=== PATIENT | female | born 1965 | race Caucasian/White ===

== ENCOUNTER 2019-08-20 10:50 | Outpatient (REF) | payer OTHER, SELFPAY ==
[2019-08-20 19:52] LABS: Calculated LDL 147 mg/dL; Cholesterol 213 mg/dL (50-200); HDL Cholesterol 54 mg/dL (40-60); Triglyceride 64 mg/dL (30-150)
== END 2019-08-20 11:10 ==
LOC: NCHCN 10:50
PROVIDERS: PCP Nurse Practitioner Family; Visit Provider Physician Assistant
DX: Z13.220 Encounter for screening for lipoid disorders (principal)
CPT/HCPCS: 80061

== ENCOUNTER 2022-06-09 21:26 | Outpatient (REF) | payer OTHER, SELFPAY ==
[2022-06-09 22:30] LABS: ALT 32 U/L (14-59); AST 24 U/L (15-37); Alkaline Phosphatase 69 U/L (46-116); Anion Gap 11.2 mmol/L (3-11); BUN 13 mg/dL (7-18); Bilirubin, Total 0.4 mg/dL (0.2-1.0); CO2 28.8 mmol/L (21.0-32.0); CREATININE 0.7 mg/dL (0.55-1.02); Calculated LDL 182 mg/dL (<100); Chloride 99 mmol/L (98-107); Cholesterol 259 mg/dL (<200); Glucose 102 mg/dL (74-106); HDL Cholesterol 59 mg/dL (40-60); Potassium 3.8 mmol/L (3.5-5.1); Sodium 139 mmol/L (136-145); TSH 0.76 uIU/mL (0.36-3.74); Total Protein 7.5 g/dL (6.4-8.2); Triglyceride 90 mg/dL (<150)
[2022-06-10 17:57] LABS: Rheumatoid Factor <8.6 IU/mL (<12.0)
[2022-06-13 12:53] LABS: ANA Interpretation Negative (Negative)
== END 2022-06-09 21:27 | disposition home or self-care (01) ==
LOC: NCHCN 21:26
PROVIDERS: PCP Nurse Practitioner Family; Visit Provider Nurse Practitioner Family
DX: E78.5 Hyperlipidemia, unspecified (principal); R68.89 Other general symptoms and signs; M25.50 Pain in unspecified joint
CPT/HCPCS: 80053; 80061; 84443; 86038; 86431

== ENCOUNTER 2022-08-01 13:11 | Outpatient (REF) | payer OTHER, SELFPAY ==
--- NOTE | 2022-08-01 11:00 | PAPFT_PTH ---
PATIENT: Carolyn Rollins LOC: [facility] U#:[id number] AGE/SX: 56/F ROOM: RE08/01/[address]: Shital Ernst DO : 1965 BED: DIS: 08/01/2022 SPEC #: [id number] RECD: 08/01/22 13:14 STATUS: CHRISTY REQ #: [id number] DEYA: 08/01/22 11:[address]: Shital Ernst DEPT: [facility] Cytology RECD BY: Rosalinda Sow ENTERED: 08/01/22 13:14 SP TYPE: PAPFT OTHR DR: Sera Azevedo Tissues: 1 - CX/ENDOCX FOR PAP SMEARS Procedures: PAP THIN PREP/UVM Screening HPV DNA PROBE Comments: [id number]
== END 2022-08-01 13:12 | disposition home or self-care (01) ==
LOC: LBN 13:11
PROVIDERS: PCP Nurse Practitioner Family; Visit Provider Obstetrics & Gynecology
DX: Z12.4 Encounter for screening for malignant neoplasm of cervix (principal); Z11.51 Encounter for screening for human papillomavirus (HPV)
CPT/HCPCS: 88142; 87624

== ENCOUNTER 2022-10-20 01:27 | Outpatient (CLI) | payer OTHER, SELFPAY ==
--- NOTE | 2022-10-20 12:00 | DI.MAMMO_ITS ---
Exam(s) MAMMO SCREENING EXAM: MAMMO SCREENING CLINICAL HISTORY: screening TECHNIQUE: Mammograms were interpreted according to the usual protocol including computer analysis w ith CAD system, tomosynthesis and C-view imaging. COMPARISON: 2015 and MM DIGITAL SCR W TWAN BILATERAL from 07/26/2016 DOC,MG MM DIGITAL SCR W TWAN BILATERAL from 09/25/2018 FINDINGS: The breasts are composed of scattered fibroglandular densities, Breast Density category B. No suspicious masses or suspicious microcalcifications are seen. A biopsy marker clip is again noted in the anterior central left breast. No skin thickening or abnormal axillary lymph nodes are seen. There has been no significant change from prior exams. IMPRESSION: BI-RADS Category 1, Negative mammogram Yearly screening mammography is recommended. Breast Density - Category B, scattered fibroglandular densities. A negative radiographic report should not delay biopsy if a dominant or clinically suspicious mass is present. Up to ten percent of cancers are not identified on mammography. A negative report may reinforce clinical impression. Adenosis and dense breasts may obscure an underlying neoplasm. False positive reports average 6 to 10%. Patient will receive a letter notifying them of these results.
== END 2022-10-20 01:47 ==
LOC: DI 01:27
PROVIDERS: PCP Nurse Practitioner Family; Visit Provider Obstetrics & Gynecology
DX: Z12.31 Encounter for screening mammogram for malignant neoplasm of breast (principal)
CPT/HCPCS: 77063; 77067

== ENCOUNTER 2023-06-15 14:42 | Outpatient (REF) | payer OTHER, SELFPAY ==
[2023-06-15 19:47] LABS: ALT 32 U/L (14-59); AST 35 U/L (15-37); Albumin 3.8 g/dL (3.4-5.0); Alkaline Phosphatase 61 U/L (46-116); Anion Gap 8.1 mmol/L (3-11); BUN 13 mg/dL (7-18); Bilirubin, Total 0.4 mg/dL (0.2-1.0); CO2 29.9 mmol/L (21.0-32.0); CREATININE 0.6 mg/dL (0.55-1.02); Calcium 9.4 mg/dL (8.5-10.1); Chloride 103 mmol/L (98-107); Estimated GFR 105.94 (mL/min/1.73m2); Glucose 94 mg/dL (74-106); Potassium 4.1 mmol/L (3.5-5.1); Sodium 141 mmol/L (136-145); Total Protein 7.5 g/dL (6.4-8.2)
[2023-06-15 19:59] LABS: Calculated LDL 166 mg/dL (<100); Cholesterol 254 mg/dL (<200); HDL Cholesterol 56 mg/dL (40-60); Triglyceride 162 mg/dL (<150)
== END 2023-06-15 14:43 | disposition home or self-care (01) ==
LOC: NCHCN 14:42
PROVIDERS: PCP Nurse Practitioner Family; Visit Provider Nurse Practitioner Family
DX: E78.5 Hyperlipidemia, unspecified (principal)
CPT/HCPCS: 80053; 80061

== ENCOUNTER 2024-03-07 09:41 | Day surgery (SDC) | payer OTHER, SELFPAY ==
[2024-03-07 10:05] VITALS: BP 141/74; PULSE 73; RESP 18; TEMP 36.5; O2SAT 97
[2024-03-07] MEDS: Lactated Ringers 1,000 ML 80 ML IV (10:25)
--- NOTE | 2024-03-07 10:34 | W.ANESPRE ---
General Info Date of Service Date Performed: 03/07/24 Height: 5 ft 3 in Weight: 68 kg Body Mass Index (BMI): 26.5 Surgical Procedure: Operation Date: 03/07/24 11:20 Proposed Procedure Side Surgeon andree Pena MD Meds Allergies and Home Medications Allergies Allergy/AdvReac Type Severity Reaction Status Date / Time amoxicillin Allergy Hives Verified 03/07/24 10:04 sulfamethoxazole Allergy Hives Verified 03/07/24 10:04 [From Bactrim] trimethoprim [From Bactrim] Allergy Hives Verified 03/07/24 10:04 Home Medication Medication Instructions Recorded multivitamin with iron (Daily 1 tab PO DAILY 08/01/22 Multiple Vitamins with Iron tablet) bisacodyl 5 mg tablet,delayed 5 mg PO ONCE #4 tabs 02/22/24 release (Dulcolax (bisacodyl)) polyethylene glycol 3350 17 17 g PO ONCE #238 grams 02/22/24 gram/dose oral powder Current Visit Medications: Current Medications Generic Name Dose Route Start Last Admin Trade Name Sohanq PRN Reason Stop Dose Admin Ringer's Solution 1,000 mls @ 80 mls/hr 03/07/24 06:00 03/07/24 10:25 IV 03/07/24 23:59 80 mls/hr INFUSION WOODY Administration IV Miscellaneous Supplies 1 each 03/07/24 06:00 Iv Access IV 03/07/24 23:59 DIRECTED WOODY Sodium Chloride 0 ml 03/07/24 06:00 Normal Saline Flush 10 Ml Syr IV 03/07/24 23:59 PRN PRN Sodium Chloride 0 ml 03/07/24 06:00 Normal Saline 10 Ml Vial IJ 03/07/24 23:59 DIRECTED PRN Sterile Water 0 ml 03/07/24 06:00 Water,Injection,Sterile 10 Ml Vial IJ 03/07/24 23:59 DIRECTED PRN PFSH Active Problems Active Problems: Problem Status Onset Code Well woman exam with routine gynecological exam Z01.419 Surgical History Surgical History History of ear surgery reconstruction to inner Tobacco Smoking/Tobacco Use Status: Former Tobacco Use Alcohol Alcohol Intake: current Alcohol intake frequency: a few times a week Substance Use Substance use: Socially Substance use type: marijuana Prental History History 3 Para 3 Hx # Term Pregnancies 3 Multiple births Hx # Pregnancies Ectopic pregnancies AB induced Hx Number of Living Children 3 AB spontaneous Vital Signs and Lab Results Vital Signs Most Recent Vital Signs in EMR: Most Recent Vital Signs Temp Pulse Resp BP Pulse Ox 36.5 C 73 18 141/74 H 97 03/07/24 10:05 03/07/24 10:05 03/07/24 10:05 03/07/24 10:05 03/07/24 10:05 Lab Results Blood Type / Crossmatch: No Data to Display Complete Blood Count: No Data to Display Complete Metabolic Panel: No Data to Display Liver Function Panel: No Data to Display Coagulation Panel: No Data to Display Cardiac Panel: No Data to Display Arterial Blood Gas: No Data to Display Venous Blood Gas: No Data to Display Pancreas Panel: No Data to Display Thyroid Panel: No Data to Display Infectious Disease: No Data to Display Blood Cultures: No Data to Display Toxicology Panel: No Data to Display Anesthesia Assessment and Plan Anesthesia History Personal History: No History of Anesthesia Complications Family History: No Family History of Anesthesia Complications Exercise Tolerance Exercise Tolerance: Metabolic Equivalents>4 Pertinent Negatives Pertinent Negatives: No Symptoms of GERD, No Major Cardiovascular Symptoms or Complaints, No Major Pulmonary Symptoms or Complaints and No History of CVA/TIA Cardiac & Pulmonary Exam Cardiac Exam: Normal S1/S2 Heart Sounds Pulmonary Exam: Clear Bilateral Breath Sounds Implantable Cardiac Device Does patient have a Pacemaker or an ICD?: No Airway Exam Known Difficult Airway: No Mallampati Class: 3 Mouth Opening: Normal (> 3cm) Thyromental Distance: Less than 3 cm Neck Range of Motion: Full ROM Neck Circumference: Normal Teeth Condition: Normal Dentition ASA Classification ASA Score: ASA 2 Emergency Case?: No NPO Status NPO Status: NPO Clears >2 hours, Solids >8 hours Anesthesia Plan Resuscitation Status: Full Code Anesthesia Technique: General Anesthesia Airway Planned: Natural Airway Monitors Used: Standard Monitors Preoperative Comments:: 58 y/o female with a benign medial history presents for colonoscopy screening pre-op. She describes her last Colonoscopy was 5 years ago at [facility].
--- NOTE | 2024-03-07 10:56 | W.COLOREPORT ---
Date of service: 03/07/24 Time of Service: 10:57 Colonoscopy Report Procedure Description: PROCEDURES PERFORMED: 1. Colonoscopy with hot snare polypectomy PREOPERATIVE DIAGNOSIS: Surveillance colonoscopy, tubulovillous adenoma history POSTOPERATIVE DIAGNOSIS: Recurrent tubulovillous rectal polyp SURGEON: Madeline Pena MD INDICATION for procedure: The patient is a 58-year-old woman without any symptoms who had a tubulovillous adenoma removed from her rectum as well as some other adenomatous polyps removed from her colon about 5 or 6 years ago at an outside hospital. She has no family history of colon cancer. FINDINGS: Normal terminal ileum. No other colon polyps. In the rectum a large, 2-3 cm pedunculated rectal polyp is seen regrowing out of the tattoo site. This was resected piecemeal with hot snare technique. SURVEILLANCE interval/FOLLOW-UP: Repeat flexible sigmoidoscopy in 3 to 6 months. SPECIMENS: yes EBL: Minimal COMPLICATIONS: None QUALITY of prep: Excellent Procedure in detail: The patient gave written consent and was in agreement with the indications, the potential risks as well as the benefits of the procedure. They were taken to the endoscopy suite and laid in the left lateral decubitus position. A timeout was performed and anesthesia was administered which was tolerated well. I started the procedure. Digital rectal and visual examination was performed and grossly within normal limits. A well-lubricated flexible colonoscope was then introduced and passed without any notable difficulty all the way to the cecum identified by the ileocecal valve and the appendiceal orifice. The terminal ileum was briefly intubated and looked normal. This patient the scope was then slowly withdrawn with the above-noted findings. The patient tolerated the procedure well and was taken to the PACU in hemodynamically stable condition.
--- NOTE | 2024-03-07 10:57 | W.PM.DSUDISC ---
Date of service: 03/07/24 Time of Service: 10:57 Discharge Plan Disposition Patient Disposition: Home Condition: Good Discharge Details Attending Provider: Serge Pena Primary Care Provider: Rose Whitmore Home Meds and New Rx's Prescriptions: No Action multivitamin with iron [Daily Multiple Vitamins/Iron] Tablet 1 tab PO DAILY bisacodyl [Dulcolax (bisacodyl)] 5 mg tablet,delayed release (DR/EC) 5 mg PO ONCE Qty: 4 0RF Rx Instructions: Take per colonoscopy instructions provided by ordering providers office polyethylene glycol 3350 17 gram/dose powder 17 g PO ONCE Qty: 238 0RF Rx Instructions: Take per colonoscopy instructions provided by ordering providers office Discharge Instructions Additional Instructions: FINDINGS: A large rectal polyp has grown back. This is the same one that was removed before. Because of this you need to have another sigmoidoscopy done in 3 to 6 months. Stand Alone Forms: Anesthesia Discharge Inst., Colonoscopy Post Instructions, Ezio Galeana (DSU) Activity:: Activity as Tolerated Diet:: As Tolerated
[2024-03-07 11:07] VITALS: BMI 26.5
--- NOTE | 2024-03-07 11:32 | BOWEL_PTH ---
PATIENT: Carolyn Rollins LOC: [facility] U#:[id number] AGE/SX: 58/F ROOM: RE03/07/[address]: Serge Pena : 1965 BED: DIS: 03/07/2024 SPEC #: [id number] RECD: 03/07/24 12:24 STATUS: CHRISTY REThu #: [id number] DEYA: 03/07/24 11:[address]: Serge Pena DEPT: Surgical Specimen RECD BY: Rosalinda Sow ENTERED: 03/07/24 12:25 SP TYPE: Bowel OTHR DR: Kasie Whitmore Tissues: 1 - BIOPSY BOWEL Procedures: GROSS AND MICRO LEVEL 4 Comments: [id number]
[2024-03-07 11:38] VITALS: BP 118/70; PULSE 63; RESP 16; TEMP 36.3; O2SAT 99
--- NOTE | 2024-03-07 11:41 | W.ANESPOSTOP ---
Postoperative Evaluation Date, Time and Location Date Performed: 03/07/24 Time Performed: 11:41 Patient Location: Day Surgery Unit Vital Signs Most Recent Imported Vital Signs: Most Recent Vital Signs Temp Pulse Resp BP Pulse Ox 36.3 C L 63 16 118/70 99 03/07/24 11:38 03/07/24 11:38 03/07/24 11:38 03/07/24 11:38 03/07/24 11:38 Pain Score Most Recent Pain Score: Most Recent Pain Score Pain Level 0 03/07/24 11:38 Assessment Mental Status: Awake (Alert & Oriented to Patient Baseline) Airway and Respiratory Function: Patent airway with normal (patient baseline) respiratory exam Cardiovascular Function: Hemodynamically Stable Hydration Status: Adequately Hydrated Nausea & Vomiting: No Nausea or Vomiting Pain: Pt. Denies Any Pain Peripheral Nerve Block: Patient did not receive a nerve block
[2024-03-07 11:56] VITALS: BP 119/84; PULSE 60; RESP 18; TEMP 36.6; O2SAT 98
== END 2024-03-07 12:18 | disposition home or self-care (01) ==
PROVIDERS: PCP Nurse Practitioner Family; Visit Provider Student in an Organized Health Care Education/Training Program
PROC: 0DJD8ZZ Inspection of Lower Intestinal Tract, Via Natural or Artificial Opening Endoscopic (ICD-10-PCS; CPT 45378; principal; 2024-03-07 11:15)
DX: Z12.11 Encounter for screening for malignant neoplasm of colon (principal); D12.8 Benign neoplasm of rectum
CPT/HCPCS: 45385; 00123; 88305; J2704

== ENCOUNTER 2024-05-20 18:28 | Outpatient (REF) | payer OTHER, SELFPAY ==
[2024-05-20 20:29] LABS: ALT 32 U/L (14-59); AST 24 U/L (15-37); Albumin 3.9 g/dL (3.4-5.0); Alkaline Phosphatase 73 U/L (46-116); Anion Gap 9.4 mmol/L (3-11); BUN 9 mg/dL (7-18); Bilirubin, Total 0.58 mg/dL (0.2-1.0); CO2 28.6 mmol/L (21.0-32.0); CREATININE 0.6 mg/dL (0.55-1.02); Calcium 9.4 mg/dL (8.5-10.1); Calculated LDL 159 mg/dL (<100); Chloride 103 mmol/L (98-107); Cholesterol 252 mg/dL (<200); Estimated GFR 105.28 (mL/min/1.73m2); Glucose 98 mg/dL (74-106); HDL Cholesterol 62 mg/dL (40-60); Sodium 141 mmol/L (136-145); Triglyceride 157 mg/dL (<150)
== END 2024-05-20 18:29 | disposition home or self-care (01) ==
LOC: NCHCN 18:28
PROVIDERS: PCP Nurse Practitioner Family; Visit Provider Nurse Practitioner Family
DX: E78.5 Hyperlipidemia, unspecified (principal)
CPT/HCPCS: 80053; 80061

== ENCOUNTER 2024-05-22 19:52 | Outpatient (REF) | payer OTHER, SELFPAY ==
[2024-05-24 14:09] LABS: Helicobacter pylori Ag, Feces Negative (Negative)
== END 2024-05-22 19:53 | disposition home or self-care (01) ==
LOC: NCHCN 19:52
PROVIDERS: PCP Nurse Practitioner Family; Visit Provider Nurse Practitioner Family
DX: R10.13 Epigastric pain (principal)
CPT/HCPCS: 87338

== ENCOUNTER 2024-06-10 06:11 | Day surgery (SDC) | payer OTHER, SELFPAY ==
--- NOTE | 2024-06-09 11:01 | W.PREOPHP ---
Assessment and Plan Assessment and plan (1) Tubulovillous adenoma polyp of rectum: Status: Acute Assessment and plan: 58-year-old woman due for flexible sigmoidoscopy for surveillance of tubulovillous adenoma. Indicated to confirm no regrowth or if any growth present, repeat resection. Overall plan: Flex sig History of Present Illness Narrative: 58-year-old woman had a large tubulovillous adenoma removed piecemeal from her rectosigmoid region 3 months ago. There is no dysplasia. It was recommended that she follow-up for a flex sig to ensure no regrowth of the polyp and, if any growth present, a repeat resection. PFSH All Active Problems (Updated 06/09/24 @ 11:03 by Serge Pena MD) Tubulovillous adenoma polyp of rectum (Acute) Well woman exam with routine gynecological exam (Acute) Surgical History History of colonoscopy (~02/2024) History of ear surgery reconstruction to inner Family History Mother Cancer uterine cancer Maternal Aunt Cancer ovarian cancer Social History (Updated 02/23/24 @ 14:46 by URIEL Chacko) Smoking/Tobacco Use Status: Former Tobacco Use Quit Date: 10/16/95 Smoking risk assessment performed?: Yes Alcohol Intake: current Alcohol Intake frequency: a few times a week Drug use: Socially Substance use type: marijuana Housing: house Do you feel safe at home: Yes Do you feel safe in your relationship?: Yes History History 3 Para 3 Hx # Term Pregnancies 3 Multiple births Hx # Pregnancies Ectopic pregnancies AB induced Hx Number of Living Children 3 AB spontaneous Meds Allergies and Home Medications Allergies Allergy/AdvReac Type Severity Reaction Status Date / Time amoxicillin Allergy Hives Verified 06/05/24 14:07 sulfamethoxazole (From Allergy Hives Verified 06/05/24 14:07 Bactrim) trimethoprim (From Bactrim) Allergy Hives Verified 06/05/24 14:07 Home Medications ?Medication ?Instructions ?Recorded ?Confirmed ?Type multivitamin with iron (Daily 1 tab PO DAILY 08/01/22 06/05/24 History Multiple Vitamins with Iron tablet) bisacodyl 5 mg tablet,delayed 5 mg PO ONCE #4 tabs 02/22/24 06/05/24 Rx release (Dulcolax (bisacodyl)) polyethylene glycol 3350 17 17 g PO ONCE #238 grams 02/22/24 06/05/24 Rx gram/dose oral powder omeprazole 20 mg capsule,delayed 20 mg PO DAILY 06/05/24 06/05/24 History release Exam Narrative Exam Narrative: General: Nontoxic, comfortable and interactive Neuro: Alert and oriented x 3 Psych: Good mood and affect, good insight and understanding into her conditions Chest: Nonlabored breathing, no wheezing, no shortness of breath Heart: Regular
--- NOTE | 2024-06-09 11:04 | W.COLOREPORT ---
Date of service: 06/10/24 Time of Service: 08:00 Colonoscopy Report Procedure Description: PROCEDURES PERFORMED: 1. Flexible sigmoidoscopy with cold forceps biopsy 2. hot snare polypectomy 3. Ablation/fulguration/destruction of rectal polyps x 7 PREOPERATIVE DIAGNOSIS: tubulovillous adenoma of rectum POSTOPERATIVE DIAGNOSIS: Rectal polyps, grade 2 internal hemorrhoids SURGEON: Madeline Pena MD INDICATION for procedure: The patient is a 58-year-old woman who had a large tubulovillous adenoma removed 5 or 6 years ago at an outside facility and then had a colonoscopy 3 months ago where it was found to be recurrent and again resected, piecemeal from her rectum 3 months ago warranting a surveillance sigmoidoscopy to ensure no recurrence and/or remove any recurrence if some found. FINDINGS: Once again, at the tattoo site, there are some small regrowth of polyp. There is a large surgical resection site that is free of polyp growth and this was biopsied with cold forceps technique to ensure benign histology at the surgical scar which is presumably the root of the polyp. Within the tattoo area there were 10 small 2-3 mm polyps. Some might be hyperplastic but I removed the 2 largest ones with cold forceps technique. I then resected and/or ablated the other 8 polyps with the snare. There were no polyps up in the sigmoid colon. There are grade 2 internal hemorrhoids present at the right anterior and right posterior columns. The left lateral column is normal. SURVEILLANCE interval/FOLLOW-UP: Repeat flexible sigmoidoscopy in 3 months - consider hemorrhoid banding at that time SPECIMENS: yes EBL: Minimal COMPLICATIONS: None QUALITY of prep: Excellent Procedure in detail: The patient gave written consent and was in agreement with the indications, the potential risks as well as the benefits of the procedure. They were taken to the endoscopy suite and laid in the left lateral decubitus position. A timeout was performed and anesthesia was administered which was tolerated well. I started the procedure. Digital rectal and visual examination was performed and grossly within normal limits. A well-lubricated flexible colonoscope was then introduced and passed without any notable difficulty all the way into the descending colon and then slowly withdrawn. Findings noted above. The patient tolerated the procedure well and was taken to the PACU in hemodynamically stable condition.
[2024-06-10 06:32] VITALS: BP 159/83; PULSE 63; RESP 16; TEMP 36.3; O2SAT 100
[2024-06-10] MEDS: Na Phosphate Enema-Adult 133 ML BTL PR (06:45)
[2024-06-10] MEDS: Lactated Ringers 1,000 ML 80 ML IV (07:09)
--- NOTE | 2024-06-10 07:30 | ANES.PREOP_ITS ---
General Info Date of Service Date Performed: 06/10/24 Height: 5 ft 3 in Weight: 68.7 kg Body Mass Index (BMI): 26.8 Surgical Procedure: Operation Date: 06/10/24 07:40 Proposed Procedure Side Surgeon p Flexible Sigmoidoscopy Serge Pena MD Actual Procedure Side Surgeon p Flexible Sigmoidoscopy Not Applicable Serge Pena MD Pre-Op Diagnosis Post-Op Diagnosis Tubulovillous adenoma polyp of rectum Meds Allergies and Home Medications Allergies Allergy/AdvReac Type Severity Reaction Status Date / Time amoxicillin Allergy Hives Verified 06/10/24 06:30 sulfamethoxazole (From Allergy Hives Verified 06/10/24 06:30 Bactrim) trimethoprim (From Bactrim) Allergy Hives Verified 06/10/24 06:30 Home Medication ?Medication ?Instructions ?Recorded multivitamin with iron (Daily 1 tab PO DAILY 08/01/22 Multiple Vitamins with Iron tablet) bisacodyl 5 mg tablet,delayed 5 mg PO ONCE #4 tabs 02/22/24 release (Dulcolax (bisacodyl)) polyethylene glycol 3350 17 17 g PO ONCE #238 grams 02/22/24 gram/dose oral powder omeprazole 20 mg capsule,delayed 20 mg PO DAILY 06/05/24 release Current Visit Medications: Current Medications Generic Name Dose Route Start Last Admin Trade Name Esteban PRN Reason Stop Dose Admin Ringer's Solution 1,000 mls @ 80 mls/hr 06/10/24 06:00 06/10/24 07:09 IV 06/10/24 23:59 80 mls/hr INFUSION WOODY Administration IV Miscellaneous Supplies 1 each 06/10/24 06:00 Iv Access IV 06/10/24 23:59 DIRECTED WOODY Sodium Chloride 0 ml 06/10/24 06:00 Normal Saline Flush 10 Ml Syr IV 06/10/24 23:59 PRN PRN Sodium Chloride 0 ml 06/10/24 06:00 Normal Saline 10 Ml Vial IJ 06/10/24 23:59 DIRECTED PRN Sterile Water 0 ml 06/10/24 06:00 Water,Injection,Sterile 10 Ml Vial IJ 06/10/24 23:59 DIRECTED PRN PFSH Active Problems Active Problems: Problem Status Onset Code Tubulovillous adenoma polyp of rectum Acute D12.8 Well woman exam with routine gynecological exam Acute Z01.419 Surgical History Surgical History History of colonoscopy (~02/2024) History of ear surgery reconstruction to inner Tobacco Smoking/Tobacco Use Status: Former Tobacco Use Alcohol Alcohol Intake: current Alcohol intake frequency: a few times a week Substance Use Substance use: Socially Substance use type: marijuana Prental History History 3 Para 3 Hx # Term Pregnancies 3 Multiple births Hx # Pregnancies Ectopic pregnancies AB induced Hx Number of Living Children 3 AB spontaneous Vital Signs and Lab Results Vital Signs Most Recent Vital Signs in EMR: Most Recent Vital Signs Temp Pulse Resp BP Pulse Ox 36.3 C L 63 16 159/83 H 100 06/10/24 06:32 06/10/24 06:32 06/10/24 06:32 06/10/24 06:32 06/10/24 06:32 Lab Results Blood Type / Crossmatch: No Data to Display Complete Blood Count: No Data to Display Complete Metabolic Panel: Sodium 141 mmol/L (136-145) 05/20/24 13:50 Potassium 4.0 mmol/L (3.5-5.1) 05/20/24 13:50 Chloride 103 mmol/L (98-107) 05/20/24 13:50 Carbon Dioxide 28.6 mmol/L (21.0-32.0) 05/20/24 13:50 BUN 9 mg/dL (7-18) 05/20/24 13:50 Creatinine 0.6 mg/dL (0.55-1.02) 05/20/24 13:50 Est GFR (CKD-EPI 2020) 105.28 (mL/min/1.73m2) 05/20/24 13:50 Calcium 9.4 mg/dL (8.5-10.1) 05/20/24 13:50 Albumin 3.9 g/dL (3.4-5.0) 05/20/24 13:50 Glucose 98 mg/dL (74-106) 05/20/24 13:50 Liver Function Panel: Alanine Aminotransferase (ALT/SGPT) 32 U/L (14-59) 05/20/24 13: 50 Aspartate Amino Transf (AST/SGOT) 24 U/L (15-37) 05/20/24 13:50 Coagulation Panel: No Data to Display Cardiac Panel: No Data to Display Arterial Blood Gas: No Data to Display Venous Blood Gas: No Data to Display Pancreas Panel: No Data to Display Thyroid Panel: No Data to Display Infectious Disease: No Data to Display Blood Cultures: No Data to Display Toxicology Panel: No Data to Display Anesthesia Assessment and Plan Anesthesia History Personal History: No History of Anesthesia Complications Family History: No Family History of Anesthesia Complications Exercise Tolerance Exercise Tolerance: Metabolic Equivalents>4 Pertinent Negatives Pertinent Negatives: No Symptoms of GERD (on Rx) Cardiac & Pulmonary Exam Cardiac Exam: Normal S1/S2 Heart Sounds Pulmonary Exam: Clear Bilateral Breath Sounds Implantable Cardiac Device Does patient have a Pacemaker or an ICD?: No Airway Exam Known Difficult Airway: No Mallampati Class: 3 Mouth Opening: Normal (> 3cm) Thyromental Distance: Less than 3 cm Neck Range of Motion: Full ROM Neck Circumference: Normal Teeth Condition: Normal Dentition ASA Classification ASA Score: ASA 2 Emergency Case?: No NPO Status NPO Status: NPO Clears >2 hours, Solids >8 hours Anesthesia Plan Resuscitation Status: Full Code Anesthesia Technique: General Anesthesia Airway Planned: Natural Airway Monitors Used: Standard Monitors
[2024-06-10 07:33] VITALS: BMI 26.8
--- NOTE | 2024-06-10 08:00 | BOWEL_PTH ---
PATIENT: Carolyn Rollins LOC: [facility] U#:[id number] AGE/SX: 58/F ROOM: RE06/10/[address]: Serge Pena : 1965 BED: DIS: 06/10/2024 SPEC #: [id number] RECD: 06/10/24 11:36 STATUS: CHRISTY RE #: [id number] DEYA: 06/10/24 08:[address]: Serge Pena DEPT: Surgical Specimen RECD BY: Jerilyn Vázquez ENTERED: 06/10/24 11:39 SP TYPE: Bowel OTHR DR: Kasie Whitmore Tissues: 1 - BIOPSY BOWEL 2 - BIOPSY BOWEL 3 - BIOPSY BOWEL Procedures: GROSS AND MICRO LEVEL 4 Comments: [id number]
[2024-06-10 08:17] VITALS: BP 115/88; PULSE 64; RESP 16; TEMP 36.3; O2SAT 99
--- NOTE | 2024-06-10 08:19 | W.ANESPOSTOP ---
Postoperative Evaluation Date, Time and Location Date Performed: 06/10/24 Time Performed: 08:19 Patient Location: Day Surgery Unit Vital Signs Most Recent Imported Vital Signs: Most Recent Vital Signs Temp Pulse Resp BP Pulse Ox 36.3 C L 64 16 115/88 99 06/10/24 08:17 06/10/24 08:17 06/10/24 08:17 06/10/24 08:17 06/10/24 08:17 Pain Score Most Recent Pain Score: Most Recent Pain Score Pain Level 0 06/10/24 06:32 Assessment Mental Status: Awake (Alert & Oriented to Patient Baseline) Airway and Respiratory Function: Patent airway with normal (patient baseline) respiratory exam Cardiovascular Function: Hemodynamically Stable Hydration Status: Adequately Hydrated Nausea & Vomiting: No Nausea or Vomiting Pain: Pt. Denies Any Pain Peripheral Nerve Block: Patient did not receive a nerve block
[2024-06-10 08:20] VITALS: BP 140/87; PULSE 68; RESP 17; TEMP 36.2; O2SAT 100
--- NOTE | 2024-06-10 08:20 | W.PM.DSUDISC ---
Date of service: 06/10/24 Time of Service: 08:20 Discharge Plan Disposition Patient Disposition: Home Condition: Good Discharge Details Attending Provider: Serge Pena Primary Care Provider: Rose Whitmore Home Meds and New Rx's Prescriptions: No Action multivitamin with iron [Daily Multiple Vitamins/Iron] Tablet 1 tab PO DAILY bisacodyl [Dulcolax (bisacodyl)] 5 mg tablet,delayed release (DR/EC) 5 mg PO ONCE Qty: 4 0RF Rx Instructions: Take per colonoscopy instructions provided by ordering providers office polyethylene glycol 3350 17 gram/dose powder 17 g PO ONCE Qty: 238 0RF Rx Instructions: Take per colonoscopy instructions provided by ordering providers office omeprazole 20 mg capsule,delayed release(DR/EC) 20 mg PO DAILY Discharge Instructions Additional Instructions: FINDINGS: The polyp was again regrowing in multiple little places, but very small this time(because of the short timeframe which was the point). All of the small re? growth areas were aggressively removed/destroyed with cautery. We should do another flexible sigmoidoscopy in 3 months for the same reasons to ensure nothing else is growing back. You also have significant hemorrhoid disease on 1 side. This can be easily dealt with at your next procedure if you would like. This is called hemorrhoid banding. Lastly, if you want to have an upper endoscopy done at the same time, next time, you should follow-up with me in the office to discuss your symptoms and the role and purpose for upper endoscopy. Call the surgery office to schedule. Activity:: Activity as Tolerated Remove Dressings/Wound Care:: 24 hours Diet:: As Tolerated DS: Diagnosis Discharge Diagnosis (1) Tubulovillous adenoma polyp of rectum: Status: Acute Asessment and Plan: The polyp was again regrowing, but very small this time. All of the small re? growth areas were aggressively removed/destroyed with cautery. Overall plan: Should do another flexible sigmoidoscopy in 3 months for the same reasons to ensure nothing else is growing back.
== END 2024-06-10 08:57 | disposition home or self-care (01) ==
PROVIDERS: PCP Nurse Practitioner Family; Visit Provider Student in an Organized Health Care Education/Training Program
PROC: 0DJD8ZZ Inspection of Lower Intestinal Tract, Via Natural or Artificial Opening Endoscopic (ICD-10-PCS; CPT 45330; principal; 2024-06-10 07:30)
DX: D12.8 Benign neoplasm of rectum (principal); K64.1 Second degree hemorrhoids; K62.89 Other specified diseases of anus and rectum
CPT/HCPCS: 45346; 45338; 45331; 123; 88305; 00123; J2001; J2704

== ENCOUNTER 2024-09-02 09:53 | Day surgery (SDC) | payer OTHER, SELFPAY ==
[2024-09-02 10:00] VITALS: BP 176/84; PULSE 62; RESP 18; TEMP 36.4; O2SAT 99
[2024-09-02] MEDS: Na Phosphate Enema-Adult 133 ML BTL PR ×2 (10:15→10:26)
[2024-09-02] MEDS: Normal Saline Flush 10 ML SYR IV (10:28)
--- NOTE | 2024-09-02 10:29 | W.ANESPRE ---
General Info Date of Service Date Performed: 09/02/24 Height: 5 ft 3 in Weight: 68.8 kg Body Mass Index (BMI): 26.9 Surgical Procedure: Operation Date: 09/02/24 11:55 Proposed Procedure Side Surgeon p Flexible Sigmoidoscopy Serge Pena MD s Hemorrhoid Banding Serge Pena MD Meds Allergies and Home Medications Allergies Allergy/AdvReac Type Severity Reaction Status Date / Time amoxicillin Allergy Hives Verified 09/02/24 10:07 sulfamethoxazole (From Allergy Hives Verified 09/02/24 10:07 Bactrim) trimethoprim (From Bactrim) Allergy Hives Verified 09/02/24 10:07 Home Medication ?Medication ?Instructions ?Recorded multivitamin with iron (Daily 1 tab PO DAILY 08/01/22 Multiple Vitamins with Iron tablet) bisacodyl 5 mg tablet,delayed 5 mg PO ONCE #4 tabs 02/22/24 release (Dulcolax (bisacodyl)) polyethylene glycol 3350 17 17 g PO ONCE #238 grams 02/22/24 gram/dose oral powder omeprazole 20 mg capsule,delayed 20 mg PO DAILY 06/05/24 release soy isoflavone-black cohosh 1 cap PO DAILY 08/28/24 root-magnolia bark 155 mg capsule (Estroven) Current Visit Medications: Current Medications Generic Name Dose Route Start Last Admin Trade Name Sohanq PRN Reason Stop Dose Admin IV Miscellaneous Supplies 1 each 09/02/24 06:00 Iv Access IV 09/02/24 23:59 DIRECTED WOODY Sodium Biphosphate/Sodium Phosphate 133 ml 09/02/24 06:00 09/02/24 10:26 Na Phosphate Enema-Adult 133 Ml Btl [place] 09/03/24 23:59 1 btl DIRECTED WOODY Administration Sodium Chloride 0 ml 09/02/24 06:00 Normal Saline Flush 10 Ml Syr IV 09/02/24 23:59 PRN PRN Sodium Chloride 0 ml 09/02/24 06:00 Normal Saline 10 Ml Vial IJ 09/02/24 23:59 DIRECTED PRN Sterile Water 0 ml 09/02/24 06:00 Water,Injection,Sterile 10 Ml Vial IJ 09/02/24 23:59 DIRECTED PRN PFSH Active Problems Active Problems: Problem Status Onset Code Tubulovillous adenoma polyp of rectum Acute D12.8 Well woman exam with routine gynecological exam Acute Z01.419 Surgical History Surgical History History of flexible sigmoidoscopy (~05/2024) History of colonoscopy (~02/2024) History of ear surgery reconstruction to inner Tobacco Smoking/Tobacco Use Status: Former Tobacco Use Alcohol Alcohol Intake: current Alcohol intake frequency: a few times a week Substance Use Substance use: Socially Substance use type: marijuana Prental History History 3 Para 3 Hx # Term Pregnancies 3 Multiple births Hx # Pregnancies Ectopic pregnancies AB induced Hx Number of Living Children 3 AB spontaneous Vital Signs and Lab Results Vital Signs Most Recent Vital Signs in EMR: Most Recent Vital Signs Temp Pulse Resp BP Pulse Ox 36.4 C L 62 18 176/84 H 99 09/02/24 10:00 09/02/24 10:00 09/02/24 10:00 09/02/24 10:00 09/02/24 10:00 Lab Results Blood Type / Crossmatch: No Data to Display Complete Blood Count: No Data to Display Complete Metabolic Panel: No Data to Display Liver Function Panel: No Data to Display Coagulation Panel: No Data to Display Cardiac Panel: No Data to Display Arterial Blood Gas: No Data to Display Venous Blood Gas: No Data to Display Pancreas Panel: No Data to Display Thyroid Panel: No Data to Display Infectious Disease: No Data to Display Blood Cultures: No Data to Display Toxicology Panel: No Data to Display Anesthesia Assessment and Plan Anesthesia History Personal History: No History of Anesthesia Complications Family History: No Family History of Anesthesia Complications Exercise Tolerance Exercise Tolerance: Metabolic Equivalents>4 Pertinent Negatives Pertinent Negatives: No Symptoms of GERD Cardiac & Pulmonary Exam Cardiac Exam: Normal S1/S2 Heart Sounds Pulmonary Exam: Clear Bilateral Breath Sounds Implantable Cardiac Device Does patient have a Pacemaker or an ICD?: No Airway Exam Known Difficult Airway: No Mallampati Class: 3 Mouth Opening: Normal (> 3cm) Thyromental Distance: Less than 3 cm Neck Range of Motion: Full ROM Neck Circumference: Normal Teeth Condition: Normal Dentition ASA Classification ASA Score: ASA 2 Emergency Case?: No NPO Status NPO Status: NPO Clears >2 hours, Solids >8 hours Anesthesia Plan Resuscitation Status: Full Code Anesthesia Technique: General Anesthesia Airway Planned: Natural Airway Monitors Used: Standard Monitors
--- NOTE | 2024-09-02 10:41 | W.ANESPRE ---
General Info Date of Service Date Performed: 09/02/24 Height: 5 ft 3 in Weight: 68.8 kg Body Mass Index (BMI): 26.9 Surgical Procedure: Operation Date: 09/02/24 11:55 Proposed Procedure Side Surgeon p Flexible Sigmoidoscopy Serge Pena MD s Hemorrhoid Banding Serge Pena MD Meds Allergies and Home Medications Allergies Allergy/AdvReac Type Severity Reaction Status Date / Time amoxicillin Allergy Hives Verified 09/02/24 10:07 sulfamethoxazole (From Allergy Hives Verified 09/02/24 10:07 Bactrim) trimethoprim (From Bactrim) Allergy Hives Verified 09/02/24 10:07 Home Medication ?Medication ?Instructions ?Recorded multivitamin with iron (Daily 1 tab PO DAILY 08/01/22 Multiple Vitamins with Iron tablet) bisacodyl 5 mg tablet,delayed 5 mg PO ONCE #4 tabs 02/22/24 release (Dulcolax (bisacodyl)) polyethylene glycol 3350 17 17 g PO ONCE #238 grams 02/22/24 gram/dose oral powder omeprazole 20 mg capsule,delayed 20 mg PO DAILY 06/05/24 release soy isoflavone-black cohosh 1 cap PO DAILY 08/28/24 root-magnolia bark 155 mg capsule (Estroven) Current Visit Medications: Current Medications Generic Name Dose Route Start Last Admin Trade Name Freq PRN Reason Stop Dose Admin IV Miscellaneous Supplies 1 each 09/02/24 06:00 Iv Access IV 09/02/24 23:59 DIRECTED WOODY Sodium Biphosphate/Sodium Phosphate 133 ml 09/02/24 06:00 09/02/24 10:26 Na Phosphate Enema-Adult 133 Ml Btl [place] 09/03/24 23:59 1 btl DIRECTED WOODY Administration Sodium Chloride 0 ml 09/02/24 06:00 09/02/24 10:28 Normal Saline Flush 10 Ml Syr IV 09/02/24 23:59 10 ml PRN PRN Administration Sodium Chloride 0 ml 09/02/24 06:00 Normal Saline 10 Ml Vial IJ 09/02/24 23:59 DIRECTED PRN Sterile Water 0 ml 09/02/24 06:00 Water,Injection,Sterile 10 Ml Vial IJ 09/02/24 23:59 DIRECTED PRN PFSH Active Problems Active Problems: Problem Status Onset Code Tubulovillous adenoma polyp of rectum Acute D12.8 Well woman exam with routine gynecological exam Acute Z01.419 Surgical History Surgical History History of flexible sigmoidoscopy (~05/2024) History of colonoscopy (~02/2024) History of ear surgery reconstruction to inner Tobacco Smoking/Tobacco Use Status: Former Tobacco Use Alcohol Alcohol Intake: current Alcohol intake frequency: a few times a week Substance Use Substance use: Socially Substance use type: marijuana Prental History History 3 Para 3 Hx # Term Pregnancies 3 Multiple births Hx # Pregnancies Ectopic pregnancies AB induced Hx Number of Living Children 3 AB spontaneous Vital Signs and Lab Results Vital Signs Most Recent Vital Signs in EMR: Most Recent Vital Signs Temp Pulse Resp BP Pulse Ox 36.4 C L 62 18 176/84 H 99 09/02/24 10:00 09/02/24 10:00 09/02/24 10:00 09/02/24 10:00 09/02/24 10:00 Lab Results Blood Type / Crossmatch: No Data to Display Complete Blood Count: No Data to Display Complete Metabolic Panel: No Data to Display Liver Function Panel: No Data to Display Coagulation Panel: No Data to Display Cardiac Panel: No Data to Display Arterial Blood Gas: No Data to Display Venous Blood Gas: No Data to Display Pancreas Panel: No Data to Display Thyroid Panel: No Data to Display Infectious Disease: No Data to Display Blood Cultures: No Data to Display Toxicology Panel: No Data to Display Anesthesia Assessment and Plan Anesthesia History Personal History: No History of Anesthesia Complications Family History: No Family History of Anesthesia Complications Exercise Tolerance Exercise Tolerance: Metabolic Equivalents>4 Pertinent Negatives Pertinent Negatives: No Symptoms of GERD, No Major Cardiovascular Symptoms or Complaints and No Major Pulmonary Symptoms or Complaints Cardiac & Pulmonary Exam Cardiac Exam: Normal S1/S2 Heart Sounds Pulmonary Exam: Clear Bilateral Breath Sounds Implantable Cardiac Device Does patient have a Pacemaker or an ICD?: No Airway Exam Known Difficult Airway: No Mallampati Class: 3 Mouth Opening: Normal (> 3cm) Thyromental Distance: Less than 3 cm Neck Range of Motion: Full ROM Neck Circumference: Normal Teeth Condition: Normal Dentition ASA Classification ASA Score: ASA 2 Emergency Case?: No NPO Status NPO Status: NPO Clears >2 hours, Solids >8 hours Anesthesia Plan Resuscitation Status: Full Code Anesthesia Technique: General Anesthesia Airway Planned: Natural Airway Monitors Used: Standard Monitors
[2024-09-02 10:48] VITALS: BMI 26.9
--- NOTE | 2024-09-02 10:51 | SCONE_ITS ---
Date of service: 09/02/24 Time of Service: 10:51 Assessment and Plan Assessment and plan (1) Tubulovillous adenoma polyp of rectum: Status: Chronic Assessment and plan: 58-year-old woman with a recurrent tubulovillous adenoma of the rectum warranting surveillance to ensure no polyp regrowth. She is not having any symptoms. Separately, symptomatic grade 2 internal hemorrhoids can be easily banded at the same time which she would like done. Overall plan: Flexible sigmoidoscopy and anoscopy with internal hemorrhoid banding History of Present Illness Narrative: 58-year-old woman is well?known to all of us. She is here for a follow-up sigmoidoscopy, really to just assess her rectum for what has been multiply?rec urrent tubulovillous adenoma. Separately she has symptomatic internal hemorrhoids. PFSH All Active Problems (Updated 09/02/24 @ 10:58 by Serge Pena MD) Tubulovillous adenoma polyp of rectum (Chronic) Well woman exam with routine gynecological exam (Acute) Surgical History History of flexible sigmoidoscopy (~05/2024) History of colonoscopy (~02/2024) History of ear surgery reconstruction to inner Family History Mother Cancer uterine cancer Maternal Aunt Cancer ovarian cancer Social History (Updated 02/23/24 @ 14:46 by URIEL Chacko) Smoking/Tobacco Use Status: Former Tobacco Use Quit Date: 10/16/95 Smoking risk assessment performed?: Yes Alcohol Intake: current Alcohol Intake frequency: a few times a week Drug use: Socially Substance use type: marijuana Housing: house Do you feel safe at home: Yes Do you feel safe in your relationship?: Yes History History 3 Para 3 Hx # Term Pregnancies 3 Multiple births Hx # Pregnancies Ectopic pregnancies AB induced Hx Number of Living Children 3 AB spontaneous Exam Narrative Exam Narrative: Gen: Non-toxic, comfortable and interactive Neuro: Alert and oriented x3 Psych: Good mood and affect. Good insight and understanding into condition. Chest: Non-labored breathing, no wheezing, no visible shortness of breath. Heart: Regular Results Last Vital Signs Temp 97.5 F L 09/02/24 10:00 Pulse 62 11/18/24 10:00 Resp 18 09/02/24 10:00 BP 176/84 H 09/02/24 10:00 Pulse Ox 99 09/02/24 10:00
--- NOTE | 2024-09-02 10:59 | W.PM.OP ---
Operative Note Operative Note Refer to Anesthesia Record Procedure Description: PROCEDURES PERFORMED: 1. Flexible sigmoidoscopy with cold forceps polypectomy and biopsies 2. Anoscopy 2. Internal hemorrhoid banding x3 PREOPERATIVE DIAGNOSIS: Recurrent rectal tubulovillous adenoma, grade 2 internal hemorrhoids POSTOPERATIVE DIAGNOSIS: Rectal polyps, grade 2 internal hemorrhoids SURGEON: Madeline Pena MD INDICATION FOR PROCEDURE: The patient is a 58-year-old woman well?known to us for recurrent rectal tubulovillous adenoma. Surveillance indicated. She also has symptomatic internal hemorrhoids. FINDINGS: In and around the tattooed region(rectal body ~10cm), there is no visual evidence of polyp recurrence. An isolated and completely separate, novel 2-3 mm sessile polyp was removed with cold forceps technique. There are 2 noticeable scars along the tattooed region. Neither of these appear to have recurrent disease but I biopsied the central portion of each to confirm histologically. She has grade 2 internal disease present at all 3 hemorrhoid columns. These were each banded separately. SURVEILLANCE interval/FOLLOW-UP: I think considering the history and how many times she has had recurrence, it would be ideal and reasonable to repeat another flexible sigmoidoscopy in 1 year if, at that time, things are completely normal and there is no recurrence, then I think we could stretch it out to 3 years. SPECIMENS: Yes EBL: Minimal COMPLICATIONS: None Procedure in detail: The patient gave written consent and was in agreement with the indications, the potential risks as well as the benefits of the procedure. Anesthesia was administered which she tolerated well and I started the procedure after a timeout. Digital rectal exam is grossly normal. I introduced a well?lubricated flexible sigmoidoscope with the above?noted findings and interventions performed. I removed the scope and began the anoscopy portion. A well?lubricated anoscope was gently introduced. The anal canal was carefully inspected and appeared normal. Internal hemorrhoid disease was readily visible at all 3 columns. Banding was performed in usual fashion. The patient tolerated the procedure well and was taken to the PACU in hemodynamically stable condition. Date of Procedure: 09/02/24
--- NOTE | 2024-09-02 11:00 | PDOC.DSDIS_ITS ---
Date of service: 09/02/24 Time of Service: 11:00 Discharge Plan Disposition Patient Disposition: Home Condition: Good Discharge Details Attending Provider: Serge Pena Primary Care Provider: Rose Whitmore Home Meds and New Rx's Prescriptions: No Action multivitamin with iron [Daily Multiple Vitamins/Iron] Tablet 1 tab PO DAILY bisacodyl [Dulcolax (bisacodyl)] 5 mg tablet,delayed release (DR/EC) 5 mg PO ONCE Qty: 4 0RF Rx Instructions: Take per colonoscopy instructions provided by ordering providers office polyethylene glycol 3350 17 gram/dose powder 17 g PO ONCE Qty: 238 0RF Rx Instructions: Take per colonoscopy instructions provided by ordering providers office omeprazole 20 mg capsule,delayed release(DR/EC) 20 mg PO DAILY Estroven 155 mg capsule 1 cap PO DAILY Discharge Instructions Additional Instructions: FINDINGS: No evidence that the polyp is growing back or recurring. I did find a couple of new, tiny, novel polyps that are completely separate and I do not consider them to be a recurrence. I really think that we should probably do another procedure like today, a fl exible sigmoidoscopy only, to double check everything again in 1 year's time. Just to be safe. A repeat full?colonoscopy in 3 years. Hemorrhoid banding was performed as we had discussed and went well. Activity:: Activity as Tolerated Diet:: As Tolerated DS: Diagnosis Discharge Diagnosis (1) Tubulovillous adenoma polyp of rectum: Status: Chronic
--- NOTE | 2024-09-02 11:16 | BOWEL_PTH ---
PATIENT: Carolyn Rollins LOC: [facility] U#:[id number] AGE/SX: 58/F ROOM: RE09/02/[address]: Serge Pena : 1965 BED: DIS: 09/02/2024 SPEC #: [id number] RECD: 09/02/24 12:56 STATUS: CHRISTY REQ #: [id number] DEYA: 09/02/24 11:[address]: Serge Pena DEPT: Surgical Specimen RECD BY: Rosalinda Sow ENTERED: 09/02/24 12:57 SP TYPE: Bowel OTHR DR: Kasie Whitmore Tissues: 1 - BIOPSY BOWEL 2 - TATTOO Procedures: GROSS AND MICRO LEVEL 4 Comments: [id number]
[2024-09-02 11:31] VITALS: BP 134/74; PULSE 61; RESP 16; TEMP 36; O2SAT 99
[2024-09-02 12:08] VITALS: BP 164/95; PULSE 61; RESP 20; TEMP 37.1; O2SAT 99
--- NOTE | 2024-09-02 13:00 | W.ANESPOSTOP ---
Postoperative Evaluation Date, Time and Location Date Performed: 09/02/24 Time Performed: 11:32 Patient Location: Day Surgery Unit Vital Signs Most Recent Imported Vital Signs: Most Recent Vital Signs Temp Pulse Resp BP Pulse Ox 37.1 C 61 20 164/95 H 99 09/02/24 12:08 09/02/24 12:08 09/02/24 12:08 09/02/24 12:08 09/02/24 12:08 Pain Score Most Recent Pain Score: Most Recent Pain Score Pain Level 0 09/02/24 11:31 Assessment Mental Status: Arousable with meaningful communication Airway and Respiratory Function: Patent airway with normal (patient baseline) respiratory exam Cardiovascular Function: Hemodynamically Stable Hydration Status: Adequately Hydrated Nausea & Vomiting: No Nausea or Vomiting Pain: Pt. Denies Any Pain Peripheral Nerve Block: Patient did not receive a nerve block
== END 2024-09-02 12:25 | disposition home or self-care (01) ==
PROVIDERS: PCP Nurse Practitioner Family; Visit Provider Student in an Organized Health Care Education/Training Program
PROC: 0DJD8ZZ Inspection of Lower Intestinal Tract, Via Natural or Artificial Opening Endoscopic (ICD-10-PCS; CPT 45330; principal; 2024-09-02 11:45)
DX: K64.1 Second degree hemorrhoids; D12.8 Benign neoplasm of rectum
CPT/HCPCS: 45350; 45331; 00123; 88300; 88305; J2003; J2704

== ENCOUNTER 2025-05-21 10:57 | Outpatient (REF) | payer OTHER, SELFPAY ==
[2025-05-21 20:41] LABS: ALT 31 U/L (14-59); AST 28 U/L (15-37); Albumin 3.7 g/dL (3.4-5.0); Alkaline Phosphatase 72 U/L (46-116); Anion Gap 3.3 mmol/L (3-11); BUN 14 mg/dL (7-18); Bilirubin, Total 0.6 mg/dL (0.2-1.0); CO2 31.7 mmol/L (21.0-32.0); Calcium 9.2 mg/dL (8.5-10.1); Calculated LDL 178 mg/dL (<100); Chloride 104 mmol/L (98-107); Cholesterol 252 mg/dL (<200); Estimated GFR 109.33 (mL/min/1.73m2); Glucose 106 mg/dL (74-106); HDL Cholesterol 62 mg/dL (>or=50); Potassium 4.4 mmol/L (3.5-5.1); Sodium 139 mmol/L (136-145); Total Protein 7.6 g/dL (6.4-8.2); Triglyceride 60 mg/dL (<150)
== END 2025-05-21 10:58 | disposition home or self-care (01) ==
LOC: NCHCN 10:57
PROVIDERS: PCP Nurse Practitioner Family; Visit Provider Nurse Practitioner Family
DX: E78.5 Hyperlipidemia, unspecified (principal)
CPT/HCPCS: 80053; 80061

== ENCOUNTER 2025-06-13 00:27 | Outpatient (CLI) | payer OTHER, SELFPAY ==
--- NOTE | 2025-06-13 | DI.MAMMO_ITS ---
Exam(s) MAMMO SCREENING EXAM: MAMMO SCREENING CLINICAL HISTORY: SCREENING,Z12.31. TECHNIQUE: Bilateral full field digital CC and MLO mammographic images were obtained with 3D tomosynthesis and utilizing computer aided detection (CAD). COMPARISON: Prior mammograms were reviewed. FINDINGS: There has been no significant change in the appearance and distribution of the fibroglandular tissue. No new findings in the immediate vicinity of the biopsy marker device in the left breast. There are no new spiculated masses nor new malignant appearing microcalcification groups. There is no significant architectural distortion nor skin thickening-retraction. IMPRESSION: No radiographic evidence of malignancy. BI-RADS Category 1 - Negative Breast Density - Category B - There are scattered areas of fibroglandular density. Breast density Category C or D implies that the patient has dense breast tissue. Dense breast tissue can make it harder to find cancer on a mammogram. Dense breast tissue is also associated with an increased risk of breast cancer. This information about the result of the mammogram report was provided to the patient to raise their awareness. Use this report when you speak with the patient about their risks for breast cancer, which includes their family history. At that time, you may recommend additional screening tests (Ultrasound or MRI) as these tests may add significant information. A negative radiographic report should not delay biopsy if a dominant or clinically suspicious mass is present. Up to ten percent of cancers are not identified on mammography. A negative report may reinforce clinical impression. Adenosis and dense breasts may obscure an underlying neoplasm. False positive reports average 6 to 10%. Patient will receive a letter notifying them of these results.
== END 2025-06-13 00:47 ==
LOC: DI 00:28
PROVIDERS: PCP Nurse Practitioner Family; Visit Provider Nurse Practitioner Family
DX: Z12.31 Encounter for screening mammogram for malignant neoplasm of breast (principal)
CPT/HCPCS: 77063; 77067

== ENCOUNTER 2025-07-22 18:19 | Outpatient (REF) | payer OTHER, SELFPAY ==
--- NOTE | 2025-07-22 13:15 | PAPFT_PTH ---
PATIENT: Carolyn Rollins LOC: [facility] U#:[id number] AGE/SX: 59/F ROOM: RE07/22/[address]: Kasie Whitmore : 1965 BED: DIS: 07/22/2025 SPEC #: [id number] RECD: 07/22/25 18:32 STATUS: CHRISTY REQ #: [id number] DEYA: 07/22/25 13:[address]: Belkis Brewer DEPT: [facility] Cytology RECD BY: Rosalinda Sow ENTERED: 07/22/25 18:34 SP TYPE: PAPFT OTHR DR: Kasie Whitmore Tissues: 1 - CX/ENDOCX FOR PAP SMEARS Procedures: PAP THIN PREP/UVM Screening HPV DNA PROBE Comments: [id number] (HPV 16 & 18/45)
== END 2025-07-22 18:20 | disposition home or self-care (01) ==
LOC: NCHCN 18:19
PROVIDERS: PCP Nurse Practitioner Family; Visit Provider Nurse Practitioner Family
DX: Z12.4 Encounter for screening for malignant neoplasm of cervix (principal)
CPT/HCPCS: 88142; 87624

== ENCOUNTER 2025-09-22 10:22 | Day surgery (SDC) | payer OTHER, SELFPAY ==
[2025-09-22 10:50] VITALS: BP 123/66; PULSE 73; RESP 16; TEMP 36.1; O2SAT 99
[2025-09-22] MEDS: Lactated Ringers 1,000 ML 80 ML IV (11:12)
--- NOTE | 2025-09-22 11:35 | W.ANESPRE ---
General Info Date of Service Date Performed: 09/22/25 Height: 5 ft 4 in Weight: 73 kg Body Mass Index (BMI): 27.6 Surgical Procedure: Operation Date: 09/22/25 11:20 Proposed Procedure Side Surgeon p Colonoscopy Serge Pena MD Meds Allergies and Home Medications Allergies Allergy/AdvReac Type Severity Reaction Status Date / Time amoxicillin Allergy Hives Verified 09/22/25 10:45 sulfamethoxazole (From Allergy Hives Verified 09/22/25 10:45 Bactrim) trimethoprim (From Bactrim) Allergy Hives Verified 09/22/25 10:45 Home Medication ?Medication ?Instructions ?Recorded multivitamin with iron (Daily 1 tab PO DAILY 08/01/22 Multiple Vitamins with Iron tablet) soy isoflavone-black cohosh 1 cap PO DAILY 08/28/24 root-magnolia bark 155 mg capsule (Estroven) bisacodyl 5 mg tablet,delayed 5 mg PO ONCE #4 tabs 09/10/25 release (Dulcolax (bisacodyl)) polyethylene glycol 3350 17 17 g PO ONCE #238 grams 09/10/25 gram/dose oral powder acetaminophen 500 mg capsule 500 mg PO ONCE PRN 09/22/25 Current Visit Medications: Current Medications Generic Name Dose Route Start Last Admin Trade Name Freq PRN Reason Stop Dose Admin Ringer's Solution 1,000 mls @ 80 mls/hr 09/22/25 06:00 09/22/25 11:12 IV 10/19/25 23:59 80 mls/hr INFUSION WOODY Administration Sodium Chloride 0 ml 09/22/25 06:00 Normal Saline Flush 10 Ml Syr IV 10/19/25 23:59 PRN PRN Sodium Chloride 0 ml 09/22/25 06:00 Normal Saline 10 Ml Vial IJ 10/19/25 23:59 DIRECTED PRN Sterile Water 0 ml 09/22/25 06:00 Water,Injection,Sterile 10 Ml Vial IJ 10/19/25 23:59 DIRECTED PRN PFSH Active Problems Active Problems: Problem Status Onset Code Tubulovillous adenoma polyp of rectum Chronic D12.8 Well woman exam with routine gynecological exam Acute Z01.419 Medical History Medical History Tubular adenoma of colon (~08/2024) Surgical History Surgical History History of flexible sigmoidoscopy (~08/2024) Hem banding History of colonoscopy (~02/2024) History of ear surgery reconstruction to inner Tobacco Smoking/Tobacco Use Status: Former Tobacco Use Alcohol Alcohol Intake: current Alcohol intake frequency: a few times a week Substance Use Substance use: Socially Substance use type: marijuana Prental History History 3 Para 3 Hx # Term Pregnancies 3 Multiple births Hx # Pregnancies Ectopic pregnancies AB induced Hx Number of Living Children 3 AB spontaneous Vital Signs and Lab Results Vital Signs Most Recent Vital Signs in EMR: Most Recent Vital Signs Temp Pulse Resp BP Pulse Ox 36.1 C L 73 16 123/66 99 09/22/25 10:50 09/22/25 10:50 09/22/25 10:50 09/22/25 10:50 09/22/25 10:50 Anesthesia Assessment and Plan Anesthesia History Personal History: No History of Anesthesia Complications Family History: No Family History of Anesthesia Complications Exercise Tolerance Exercise Tolerance: Metabolic Equivalents>4 Pertinent Negatives Pertinent Negatives: No Symptoms of GERD, No Major Cardiovascular Symptoms or Complaints and No Major Pulmonary Symptoms or Complaints Cardiac & Pulmonary Exam Cardiac Exam: Normal S1/S2 Heart Sounds Pulmonary Exam: Clear Bilateral Breath Sounds Implantable Cardiac Device Does patient have a Pacemaker or an ICD?: No Airway Exam Known Difficult Airway: No Mallampati Class: 3 Mouth Opening: Normal (> 3cm) Thyromental Distance: Less than 3 cm Neck Range of Motion: Full ROM Neck Circumference: Normal Teeth Condition: Normal Dentition ASA Classification ASA Score: ASA 2 Emergency Case?: No NPO Status NPO Status: NPO Clears >2 hours, Solids >8 hours Anesthesia Plan Resuscitation Status: Full Code Anesthesia Technique: General Anesthesia Airway Planned: Natural Airway Monitors Used: Standard Monitors
[2025-09-22 11:36] VITALS: BMI 27.6
--- NOTE | 2025-09-22 11:41 | COLE_ITS ---
Date of service: 09/22/25 Time of Service: 11:41 Colonoscopy Report Procedure Description: PROCEDURES PERFORMED: 1. Colonoscopy with cold forceps polypectomy x1 2. Cold forceps biopsy x 1 PREOPERATIVE DIAGNOSIS: Surveillance colonoscopy, tubulovillous adenoma POSTOPERATIVE DIAGNOSIS: Colorectal polyp, grade 2 internal hemorrhoids SURGEON: Madeline Pena MD INDICATION FOR PROCEDURE: the patient is a 59-year-old woman with a long- standing history of a tubulovillous rectal polyp that has been resilient to a resection and grown back numerous times in the past. She has had surveillance sigmoidoscopies with no re? growth. This is a 1 year surveillance to reassess and ensure there is still no regrowth. FINDINGS: No regrowth on the rectal polyp. Biopsies taken at the center of the scar routinely. Polyps: In the sigmoid colon a flat 2-3 mm hyperplastic?appearing polyp was removed. No obvious diverticular disease. Grade 2 internal hemorrhoids present at an isolated colon. SURVEILLANCE interval/FOLLOW-UP: Repeat in 3 years - sooner if any symptoms were to arise SPECIMENS: Yes EBL: Minimal COMPLICATIONS: None QUALITY of prep: Excellent Procedure in detail: The patient gave written consent and was in agreement with the indications, the potential risks as well as the benefits of the procedure. They were taken to the endoscopy suite and laid in the left lateral decubitus position. A timeout was performed and anesthesia was administered which was tolerated well. I started the procedure. Digital rectal and visual examination was performed and grossly within normal limits. A well-lubricated flexible colonoscope was then introduced and passed without any notable difficulty all the way to the cecum identified by the ileocecal valve and the appendiceal orifice. The terminal ileum was briefly, superficially intubated and looked normal. The scope was then slowly withdrawn with the above-noted findings. The patient tolerated the procedure well and was taken to the PACU in hemodynamically stable condition.
--- NOTE | 2025-09-22 11:42 | W.PM.DSUDISC ---
Date of service: 09/22/25 Discharge Plan Disposition Patient Disposition: Home Condition: Good Discharge Details Attending Provider: Serge Pena Primary Care Provider: Rose Whitmore Home Meds and New Rx's Prescriptions: No Action multivitamin with iron [Daily Multiple Vitamins/Iron] Tablet 1 tab PO DAILY bisacodyl [Dulcolax (bisacodyl)] 5 mg tablet,delayed release (DR/EC) 5 mg PO ONCE Qty: 4 0RF Rx Instructions: Take per colonoscopy instructions provided by ordering providers office polyethylene glycol 3350 17 gram/dose powder 17 g PO ONCE Qty: 238 0RF Rx Instructions: Take per colonoscopy instructions provided by ordering providers office Estroven 155 mg capsule 1 cap PO DAILY acetaminophen 500 mg capsule 500 mg PO ONCE PRN Discharge Instructions Additional Instructions: FINDINGS: Everything looks good inside. The polyp resection site appears healthy. Nothing suggestive of polyp regrowth anywhere. Some routine biopsies were taken, just because of the history only. A small polyp was found in your sigmoid colon. A separate location. That polyp I suspect is a completely benign polyp based off of its appearance. Again, nothing to worry about whatsoever. Very small. It is completely safe to redo your next colonoscopy in 3 years. If you were to develop any symptoms, you should call us and we should check sooner. As long as life stays usual and normal, then let's repeat another scope in 3 years. Stand Alone Forms: Portal Information Activity:: Activity as Tolerated Diet:: As Tolerated
--- NOTE | 2025-09-22 11:56 | BOWEL_PTH ---
PATIENT: Carolyn Rollins LOC: [facility] U#:[id number] AGE/SX: 59/F ROOM: RE09/22/[address]: Serge Pena : 1965 BED: DIS: 09/22/2025 SPEC #: [id number] RECD: 09/22/25 13:00 STATUS: CHRISTY MORATAYA #: [id number] DEYA: 09/22/25 11:[address]: Serge Pena DEPT: Surgical Specimen RECD BY: Rosalinda Sow ENTERED: 09/22/25 13:01 SP TYPE: Bowel OTHR DR: Kasie Whitmore Tissues: 1 - BIOPSY BOWEL 2 - BIOPSY BOWEL Procedures: GROSS AND MICRO LEVEL 4 Comments: [id number]
[2025-09-22 12:05] VITALS: BP 130/82; PULSE 69; RESP 20; TEMP 36.5; O2SAT 100
[2025-09-22 12:42] VITALS: BP 150/63; PULSE 62; RESP 16; TEMP 36.2; O2SAT 100
--- NOTE | 2025-09-22 12:46 | W.ANESPOSTOP ---
Postoperative Evaluation Date, Time and Location Date Performed: 09/22/25 Time Performed: 12:10 Patient Location: Day Surgery Unit Vital Signs Most Recent Imported Vital Signs: Most Recent Vital Signs Temp Pulse Resp BP Pulse Ox 36.1 C L 73 16 123/66 99 09/22/25 10:50 09/22/25 10:50 09/22/25 10:50 09/22/25 10:50 09/22/25 10:50 Assessment Mental Status: Awake (Alert & Oriented to Patient Baseline) Airway and Respiratory Function: Patent airway with normal (patient baseline) respiratory exam Cardiovascular Function: Hemodynamically Stable Hydration Status: Adequately Hydrated Nausea & Vomiting: No Nausea or Vomiting Pain: Pt. Denies Any Pain Peripheral Nerve Block: Patient did not receive a nerve block
== END 2025-09-22 13:11 | disposition home or self-care (01) ==
PROVIDERS: PCP Nurse Practitioner Family; Visit Provider Student in an Organized Health Care Education/Training Program
PROC: 0DJD8ZZ Inspection of Lower Intestinal Tract, Via Natural or Artificial Opening Endoscopic (ICD-10-PCS; CPT 45378; principal; 2025-09-22 11:15)
DX: Z12.11 Encounter for screening for malignant neoplasm of colon (principal); K63.5 Polyp of colon; K64.1 Second degree hemorrhoids; K63.89 Other specified diseases of intestine; K62.89 Other specified diseases of anus and rectum
CPT/HCPCS: 45380; 88305; J2704